=== PATIENT | male | born 1955 | race Caucasian/White ===

== ENCOUNTER 2017-04-10 06:31 | Day surgery (SDC) | payer OTHER ==
[2017-04-09 08:28] LABS: BASOPHILS 0.2 % (0-2); EOSINOPHILS 1.5 % (0-7); HEMATOCRIT 46.4 % (42.0-54.0); HEMOGLOBIN 15.8 g/dL (13.5-17.5); IMMATURE GRANULOCYTES 0.1 % (0-5); LYMPHOCYTES 19.8 % (15-50); MCH 30.7 pg (26.0-34.0); MCHC 34.1 g/dL (31.0-37.0); MCV 90.1 fL (80.0-100.0); MEAN PLATELET VOLUME 9.5 fL (7.4-10.4); MONOCYTES 8.2 % (2-11); NEUTROPHILS 70.2 % (40-80); PLATELET COUNT 254 10x3/uL (130-400); RBC 5.15 10x6/uL (4.20-6.10); RDW 12.4 % (11.5-14.5); WBC 10.6 10x3/uL (4.8-10.8)
[2017-04-09 08:45] LABS: CALC OSMOLALITY 279 mosm/kg (275-300); CALCIUM 8.7 mg/dL (8.5-10.1); CARBON DIOXIDE 25.5 mmol/L (21.0-32.0); CHLORIDE - SERUM 104 mmol/L (98-107); CREATININE - SERUM 0.8 mg/dL (0.6-1.3); GLUCOSE 104 mg/dL (74-106); POTASSIUM - SERUM 4.3 mmol/L (3.5-5.1); SODIUM 139 mmol/L (136-145); UREA NITROGEN 19 mg/dL (7-18); eGFR NON AFRICAN AMERICAN > 90 mL/min (90-120)
[~2017-04-10] VITALS: Ht 182.9 cm; Wt 74.4 kg
--- NOTE | ~2017-04-10 | OP ---
PATIENT NAME: ALISHA ABREU MEDICAL RECORD: [id number] :57 LOCATION:D.OPS ADMISSION DATE: SURGEON: DUNG NGUYEN MD OPERATION DATE: 04/10/17 DATE OF OPERATION: 04/10/2017 PREOPERATIVE DIAGNOSES: 1. Left inguinal hernia. 2. Hypercholesterolemia. POSTOPERATIVE DIAGNOSES: 1. Left inguinal hernia. 2. Hypercholesterolemia. PROCEDURE: Left inguinal hernia repair with medium PHS mesh. SURGEON: Dung Nguyen MD REPORT OF PROCEDURE: The patient's abdomen was prepped and draped in sterile fashion. An oblique incision was made above the left inguinal ligament. Electrocautery was used to dissect through the subcutaneous tissue to the external oblique fascia. This fascia was opened up to the external ring using Metzenbaum scissors. The ilioinguinal nerve was found and high ligated. We then placed a [place] around the spermatic cord. The patient had an indirect hernia defect which was dissected free from the surrounding spermatic cord. This was high ligated with a 3-0 silk tie. We then made an opening in the inguinal floor and opened up the preperitoneal space of Retzius. A medium PHS mesh was then inserted and sutured down on all sides using multiple interrupted 0 Vicryls. The wound was then irrigated out with normal saline and care was taken to make sure there was no sign of any bleeding. The external oblique fascia was then closed with running 2-0 Vicryls, Te's was closed with interrupted 3-0 Vicryls and the skin was closed with running subcutaneous 5-0 Monocryl. We infused 10 mL of 0.25% Marcaine with epinephrine into the surrounding tissues and dressed the wound appropriately. COMPLICATIONS: None. CONDITION: Stable. ANESTHESIA: General endotracheal and local. BLOOD LOSS: Minimal. TRANSINT:[id number] Voice Confirmation ID: [id number] DOCUMENT ID: [id number] DUNG NGUYEN MD CC: TATO MAC MD [id number] DICTATION DATE: 04/10/17 1012 GERIATRIC CARE MANAGER: 04/10/17 1103 [facility] [address] [place] [address]
[~2017-04-10 06:31] MED LIST: CELEXA20 MG PO; HYDROCODONE-APA1 TAB PO; MULTIPLE VITAMI1 TA1 PO; VALTREX1000 MG PO; ZOCOR20 MG PO
[2017-04-10 07:27] VITALS: BP 114/69; Ht 182.9 cm; Wt 74.4 kg
[2017-04-10] MEDS ORDERED: HYDROCODONE-APA1 TAB PO (10:07)
--- NOTE | 2017-04-10 14:42 | NUR ---
1215--PT VOIDS, IV DC'D. FRANCISCO J SMITH 1230--DISCHARGE INSTRUCTIONS GIVEN, PT VERBALIZES UNDERSTANDING. PT OFF UNIT VIA WC. FRANCISCO J SMITH
== END 2017-04-10 12:30 | disposition home or self-care (01) ==
LOC: D.OPS 06:31 → D.PAN 08:30 → D.OPS 11:30
PROVIDERS: Surgery
DX: K40.90 Unilateral inguinal hernia, without obstruction or gangrene, not specified as recurrent (principal); F17.200 Nicotine dependence, unspecified, uncomplicated; Z01.812 Encounter for preprocedural laboratory examination; E78.00 Pure hypercholesterolemia, unspecified